=== PATIENT | female | born 1990 | race Caucasian/White ===

== ENCOUNTER 2017-12-27 21:35 | Emergency (ER) | payer MEDICAID ==
[~2017-12-27] VITALS: Ht 160 cm; Wt 76.3 kg
[2017-12-27 21:40] VITALS: BP 123/85
[2017-12-27] MEDS ORDERED: KETOROLAC 30 MG/1 ML ONE (21:57)
[2017-12-27] MEDS ORDERED: KETOROLAC 30 MG/1 ML IM ONE (22:00)
== END 2017-12-27 22:19 | disposition home or self-care (01) ==
LOC: ED 22:13
DX: M25.532 Pain in left wrist (principal); M25.561 Pain in right knee; M25.571 Pain in right ankle and joints of right foot
CPT/HCPCS: 96372; 99283; J1885

== ENCOUNTER 2018-09-18 20:56 | Emergency (ER) | payer MEDICAID, OTHER ==
[~2018-09-18] VITALS: Ht 160 cm; Wt 78.6 kg
[2018-09-18 21:15] VITALS: BP 106/81
[2018-09-18] MEDS ORDERED: DIPH,PERTUSS(ACELL),TET VAC/PF 0.5 ML IM-VACC ONE ×3 (21:53→22:52)
[2018-09-18] MEDS ORDERED: LIDOCAINE-MPF 1%, 5ML ONE (21:53)
[2018-09-18] MEDS ORDERED: LIDOCAINE 1%, 10ML INFIL ONE (22:00)
--- NOTE | 2018-09-18 22:58 | NUR ---
LAC REPAIR IN PROGRESS. PT TOLERATING WELL. Tdap ADMINISTERED; REPORT TO NICOLE SWIFT.
[2018-09-18] MEDS ORDERED: BACITRACIN ZINC OINT 500U/GM, 0.9 GM ONE (23:02)
== END 2018-09-18 23:32 | disposition home or self-care (01) ==
LOC: ED 23:00
DX: S61.211A Laceration without foreign body of left index finger without damage to nail, initial encounter (principal); W27.8XXA Contact with other nonpowered hand tool, initial encounter; Y93.89 Activity, other specified; Y92.69 Other specified industrial and construction area as the place of occurrence of the external cause; Y99.0 Civilian activity done for income or pay
CPT/HCPCS: 13131; 90471; 90715